=== PATIENT | female | born 2000 | race Caucasian/White ===

== ENCOUNTER → 2021-07-02 | Outpatient (CLI) | payer OTHER | LOC: CT 09:38 | DX: E28.0 Estrogen excess (principal); E28.2 Polycystic ovarian syndrome | CPT/HCPCS: 74170; Q9967 ==

== ENCOUNTER → 2022-03-22 | Outpatient (CLI) | payer OTHER ==
[2022-03-22 08:42] LABS: URINE CREATININE 75.4 mg/dL
[2022-03-23 12:09] LABS: CORTISOL 0.5 ug/dL (.); ESTRADIOL 31.8 pg/mL (.)
== END ==
LOC: LAB 06:48
PROVIDERS: Internal Medicine Endocrinology, Diabetes & Metabolism
DX: R63.5 Abnormal weight gain (principal); E28.2 Polycystic ovarian syndrome
CPT/HCPCS: 82530; 82533; 82570; 82670